=== PATIENT | female | born 1990 | race Caucasian/White ===

== ENCOUNTER 2017-11-13 14:31 | Observation (INO) | payer OTHER ==
[2017-11-13] MEDS ORDERED: Zofran 4 MG/2 ML VIAL IV PRN (14:57)
[2017-11-13] MEDS ORDERED: MORPHINE SULFATE 4 MG INJ IV PRN (14:57)
[2017-11-13] MEDS ORDERED: Lactated Ringers 1,000 ML IV SCH (15:00)
[2017-11-13] MEDS: TYLENOL 325 MG PO PRN ×2 (15:13→22:50)
[2017-11-13 15:22] LABS: Granulocyte Absolute (ANC) 5.92 (1.4-6.9); Hematocrit 28.8 % (35-47); Hemoglobin 9.8 gm/dl (12.0-16.0); Mean Cell Volume 91.4 fl (78-100); Mean Corpuscular Hemoglobin 31.1 pg (26-32); Mean Platelet Volume 10.8 fl (6-9.5); Platelet Count 254 K/mm3 (150-450); Red Blood Count 3.15 M/mm3 (4.1-5.4); Red Cell Distribution Width 13.6 % (11.5-14.0); White Blood Count 7.3 K/mm3 (4.0-10.5)
[2017-11-13 15:24] LABS: ALKALINE PHOSPHATASE 203 U/L (38-126); ANION GAP 12.5 MEQ/L (5-15); BLOOD UREA NITROGEN 5 mg/dL (7-17); CHLORIDE 105 mmol/L (98-107); Carbon Dioxide 20 mmol/L (22-30); Creatinine 1 0.53 mg/dL (0.52-1.04); Glucose 86 mg/dL (74-106); Potassium 3.4 mmol/L (3.5-5.1); SGOT/AST 168 U/L (14-36); SGPT/ALT 91 U/L (0-35); SODIUM 134 mmol/L (137-145)
[2017-11-13 16:05] LABS: ANISOCYTOSIS 1+; BAND 1 % (0.0-2.0); Lymphocytes 20 % (24-44); Monocyte 3 % (0.0-12.0); Neutrophils 76 % (36.0-66.0); Platelet Estimate NORMAL (NORMAL); Total Cells Counted 100; Toxic Granulation 1+
[2017-11-13] MEDS: Invanz 1 GM*** 1 G in Sodium Chloride 100ML MINI-BAG PLUS 100 ML IV SCH (16:19)
[2017-11-13] MEDS: Lactated Ringers 1,000 ML IV SCH ×2 (16:19→18:21)
--- NOTE | 2017-11-13 16:37 | XRAY ---
Indication: Right upper quadrant pain. Fever. Cholecystectomy. Third trimester . 2-dimensional right upper quadrant abdominal sonogram performed. Comparison: None Gallbladder surgically absent. Common bile duct 7.1 mm. No intrahepatic biliary distention. Remaining visualized portions of the liver, pancreas, and right kidney appear sonographically normal. Right kidney measures 13.5 cm in length with moderate hydronephrosis. No ascites. Impression: Cholecystectomy. Hydronephrotic right kidney presumed related to current gravid status. Remaining right upper quadrant sonogram is negative.
--- NOTE | 2017-11-13 16:44 | XRAY ---
Indication: Right upper quadrant pain. Fever. Two-dimensional OB ultrasound performed. Comparison: Major 2017. Again there is a single viable intrauterine in cephalic presentation. heart rate 173 BPM. Normal three-vessel cord and cord insertion. anatomy previously documented. Visualized stomach, kidneys, and bladder unremarkable. Placenta is again anterior without abruption/previa. BPD measures 8.75 cm corresponding to 35 weeks 2 days. HC measures 30.52 cm corresponding to 34 weeks 0 day. AC measures 29.77 cm corresponding to 33 weeks 5 days. FL measures 6.42 cm corresponding to 33 weeks 1 day. DXAA is 10.4 cm. Impression: Again single viable intrauterine with mean gestational age 34 weeks 0 day. There has been progression of with fetus now measuring 16 days larger.
[2017-11-13] MEDS ORDERED: TYLENOL 325 MG PO ONE (18:36)
[2017-11-13] MEDS: MORPHINE SULFATE 2 MG INJ IV PRN (18:39)
[2017-11-13] MEDS: PROCARDIA 10 MG PO SCH (19:12)
[2017-11-14] MEDS: MORPHINE SULFATE 2 MG INJ IV PRN ×3 (00:20→22:42)
[2017-11-14] MEDS: PROCARDIA 10 MG PO SCH ×4 (00:23→18:34)
[2017-11-14] MEDS: Lactated Ringers 1,000 ML IV SCH ×2 (02:20→10:22)
[2017-11-14] MEDS: TYLENOL 325 MG PO PRN ×3 (04:02→17:30)
--- NOTE | 2017-11-14 08:22 | PCM.NOTE ---
Date and Time: 11/14/17818 Subjective Assessment: patient has some decrease in fever this morning. feeling slightly better. pain is reasonably well controlled, pain in RUQ still significant with deep inspiration but improved, she is less tender in her upper abdomen. Objective Exam General Appearance: no apparent distress, alert Skin Exam: normal color, warm, dry Respiratory Exam: normal breath sounds, lungs clear, No respiratory distress Cardiovascular Exam: regular rate/rhythm, normal heart sounds Gastrointestinal/Abdomen Exam: tenderness (epigastrium), other (gravid), No mass , No guarding, No rebound Extremity Exam: normal inspection, normal range of motion OBJECTIVE DATA Vital Signs: Vital Signs - 24 hr Temp Pulse Resp BP BP Pulse Ox 11/14/17 04:00 99.5 F 125 H 26 H 137/62 98 11/14/17 00:41 99.9 F 119 H 28 H 105/54 98 11/13/17 22:59 101.6 F 122 H 100 11/13/17 21:30 96 11/13/17 21:00 125 H 98 11/13/17 20:00 133 H 95 11/13/17 19:50 102.6 F 145 H 24 121/53 93 L 11/13/17 15:35 102.7 F 139 H 18 127/63 Oxygen-Last 24 hours Oxygen Flowrate (L/min)-RT 2 Oxygen Flowrate (L/min)-RT 2 Oxygen Flowrate (L/min)-RT 2 Oxygen Flowrate (L/min)-RT 2 Oxygen Flowrate (L/min)-RT 2 Pain Assessment - Last Documented Pain Intensity 7 Pain Scale Used 0-10 Pain Scale Intake and Output: Intake & Output 11/11/17 11/12/17 11/13/17 11/14/17 11:59 11:59 11:59 11:59 Intake Total 3322 Balance 3322 Weight 107.955 kg Lab Results: Lab Results-Last 24 Hours 11/13/17 11/13/17 Range/Units 15:12 15:12 WBC 7.3 (4.0-10.5) K/mm3 RBC 3.15 L (4.1-5.4) M/mm3 Hgb 9.8 L (12.0-16.0) gm/dl Hct 28.8 L (35-47) % MCV 91.4 (78-100) fl MCH 31.1 (26-32) pg MCHC 34.0 (32-36) g/dl RDW 13.6 (11.5-14.0) % Plt Count 254 (150-450) K/mm3 MPV 10.8 H (6-9.5) fl Absolute Granulocytes 5.92 (1.4-6.9) Segmented Neutrophils 76 H (36.0-66.0) % Band Neutrophils 1 (0.0-2.0) % Lymphocytes (Manual) 20 L (24-44) % Monocytes (Manual) 3 (0.0-12.0) % Toxic Granulation 1+ Platelet Estimate NORMAL (NORMAL) RBC Morphology ABNORMAL Anisocytosis 1+ Sodium 134 L (137-145) mmol/L Potassium 3.4 L (3.5-5.1) mmol/L Chloride 105 (98-107) mmol/L Carbon Dioxide 20 L (22-30) mmol/L Anion Gap 12.5 (5-15) MEQ/L BUN 5 L (7-17) mg/dL Creatinine 0.53 (0.52-1.04) mg/dL Estimated GFR > 60.0 ML/MIN Glucose 86 (74-106) mg/dL Calcium 8.0 L (8.4-10.2) mg/dL Total Bilirubin 0.40 (0.2-1.3) mg/dL AST 168 H (14-36) U/L ALT 91 H (0-35) U/L Alkaline Phosphatase 203 H (38-126) U/L Serum Total Protein 6.0 L (6.3-8.2) g/dL Albumin 3.0 L (3.5-5.0) g/dL Radiology Exams: Radiology Procedures Category Date Time Status BILE DUCT [US] Stat Exams 11/13/17 14:52 Completed CHEST 1 VIEW (PORTABLE) Urgent Exams 11/13/17 20:16 Taken OB >14 WKS 1st GESTATION [US] Stat Exams 11/13/17 14:51 Completed Assessment/Plan (1) Right upper quadrant abdominal pain Current Visit: Yes Status: Acute Assessment & Plan: no obvious etiology, has moderate hydro on u/s may be related. urine culture and blood cultures are pending. seen by surgery, exam not consistent with appendicits. will check hepatitis profile in light of elevated liver enzymes and pancreatic enzymes to r/o acute pancreatitis Code(s): R10.11 - RIGHT UPPER QUADRANT PAIN (2) Fever Current Visit: Yes Status: Acute Assessment & Plan: on invanz due to pcn/ceclor allergy. awaiting culture results. Code(s): R50.9 - FEVER, UNSPECIFIED (3) Current Visit: Yes Status: Acute Code(s): Z34.90 - ENCNTR FOR SUPRVSN OF NORMAL , UNSP, UNSP TRIMESTER (4) Elevated liver enzymes Current Visit: Yes Status: Acute Code(s): R74.8 - ABNORMAL LEVELS OF OTHER SERUM ENZYMES
[2017-11-14 08:49] LABS: Hematocrit 24.5 % (35-47); Hemoglobin 8.3 gm/dl (12.0-16.0); Mean Cell Volume 92.1 fl (78-100); Mean Corpuscular Hemoglobin 31.2 pg (26-32); Mean Corpuscular Hgb Concent. 33.9 g/dl (32-36); Mean Platelet Volume 10.2 fl (6-9.5); Platelet Count 244 K/mm3 (150-450); Red Blood Count 2.66 M/mm3 (4.1-5.4); Red Cell Distribution Width 13.6 % (11.5-14.0); White Blood Count 6.9 K/mm3 (4.0-10.5)
--- NOTE | 2017-11-14 08:56 | XRAY ---
Indication: Chest pain, short of breath, and fever. Comparison: November 29, 2008. Portable chest underinflated without focal infiltrate, consolidation, or large effusion. Heart and mediastinal structures within normal limits. Bony thorax intact. Impression: Nonacute underinflated chest.
[2017-11-14 09:09] LABS: ALBUMIN 2.3 g/dL (3.5-5.0); ALKALINE PHOSPHATASE 181 U/L (38-126); AMYLASE < 30 U/L (30-110); ANION GAP 11.4 MEQ/L (5-15); BLOOD UREA NITROGEN 5 mg/dL (7-17); CHLORIDE 106 mmol/L (98-107); Calcium 7.3 mg/dL (8.4-10.2); Carbon Dioxide 19 mmol/L (22-30); Creatinine 1 0.56 mg/dL (0.52-1.04); Glucose 78 mg/dL (74-106); SGOT/AST 218 U/L (14-36); SGPT/ALT 106 U/L (0-35); SODIUM 134 mmol/L (137-145)
[2017-11-14 09:13] LABS: Potassium 2.7 mmol/L (3.5-5.1)
[2017-11-14 09:14] LABS: LIPASE < 10 U/L (23-300)
[2017-11-14 09:19] LABS: BAND 17 % (0.0-2.0); Eosinophil 1 % (0.00-3.0); Lymphocytes 19 % (24-44); Metamyelocyte 5 %; Monocyte 4 % (0.0-12.0); Myelocyte 2 %; Neutrophils 51 % (36.0-66.0); Total Cells Counted 100
[2017-11-14 09:21] LABS: ANISOCYTOSIS 1+; Platelet Estimate NORMAL (NORMAL); Polychromasia RARE
[2017-11-14] MEDS: Invanz 1 GM*** 1 G in Sodium Chloride 100ML MINI-BAG PLUS 100 ML IV SCH (10:33)
[2017-11-14] MEDS: POTASSIUM CHLORIDE 20 mEq IN WATER 100ML 20 MEQ/100 ML BAG IV SCH ×2 (11:20→13:23)
[2017-11-14 16:33] LABS: ANION GAP 10.4 MEQ/L (5-15); BLOOD UREA NITROGEN 4 mg/dL (7-17); CHLORIDE 108 mmol/L (98-107); Calcium 7.4 mg/dL (8.4-10.2); Carbon Dioxide 22 mmol/L (22-30); Glucose 73 mg/dL (74-106); Potassium 3.2 mmol/L (3.5-5.1); SODIUM 137 mmol/L (137-145)
[2017-11-14] MEDS ORDERED: Ambien 5 MG Tablet PO PRN (16:54)
[2017-11-14] MEDS: Magnesium 1 Gm / 100 Ml D5W*** 100 ML IV SCH ×2 (17:11→17:55)
[2017-11-14 18:30] LABS: Barbiturate,Urine NEGATIVE (NEGATIVE); Benzodiazepine,Urine NEGATIVE (NEGATIVE); Cocaine,Urine NEGATIVE (NEGATIVE); Methadone,Urine NEGATIVE (NEGATIVE); Opiate,Urine NEGATIVE (NEGATIVE); PCP,Urine NEGATIVE (NEGATIVE); THC,Urine NEGATIVE (NEGATIVE)
[2017-11-14 18:57] LABS: Amphetamine,Urine POSITIVE (NEGATIVE)
[2017-11-14] MEDS: Pepcid 20 MG VIAL IV SCH (21:59)
[2017-11-15] MEDS: PROCARDIA 10 MG PO SCH ×3 (00:33→13:09)
[2017-11-15] MEDS: Lactated Ringers 1,000 ML IV SCH ×2 (01:09→08:21)
[2017-11-15 01:58] VITALS: O2SAT 97
[2017-11-15] MEDS: MORPHINE SULFATE 2 MG INJ IV PRN ×4 (02:29→12:26)
[2017-11-15 06:13] LABS: ALBUMIN 2.3 g/dL (3.5-5.0); ALKALINE PHOSPHATASE 194 U/L (38-126); ANION GAP 10.6 MEQ/L (5-15); BLOOD UREA NITROGEN 4 mg/dL (7-17); CHLORIDE 107 mmol/L (98-107); Calcium 7.3 mg/dL (8.4-10.2); Carbon Dioxide 20 mmol/L (22-30); Creatinine 1 0.45 mg/dL (0.52-1.04); Glucose 67 mg/dL (74-106); SGOT/AST 119 U/L (14-36); SGPT/ALT 84 U/L (0-35); SODIUM 134 mmol/L (137-145)
[2017-11-15 06:14] LABS: AMYLASE < 30 U/L (30-110)
[2017-11-15 06:17] LABS: LIPASE < 10 U/L (23-300)
[2017-11-15 06:22] LABS: Granulocyte Absolute (ANC) 4.15 (1.4-6.9); Hematocrit 23.4 % (35-47); Hemoglobin 7.9 gm/dl (12.0-16.0); Mean Cell Volume 91.4 fl (78-100); Mean Corpuscular Hgb Concent. 33.8 g/dl (32-36); Mean Platelet Volume 10.6 fl (6-9.5); Platelet Count 285 K/mm3 (150-450); Red Blood Count 2.56 M/mm3 (4.1-5.4); Red Cell Distribution Width 13.8 % (11.5-14.0); White Blood Count 6.5 K/mm3 (4.0-10.5)
[2017-11-15 06:26] LABS: Mean Corpuscular Hemoglobin 30.8 pg (26-32)
[2017-11-15] MEDS ORDERED: K-LYTE 25 MEQ PO ONE (07:00)
[2017-11-15 09:58] LABS: HEPATITIS B VIRUS CORE TOT AB Non Reactive (Non Reactive); HEPATITIS C VIRUS ANTIBODY Non Reactive (Non Reactive); Hepatitis B Surface Antigen Non Reactive (Non Reactive)
[2017-11-15] MEDS: Pepcid 20 MG VIAL IV SCH (10:05)
[2017-11-15] MEDS: Invanz 1 GM*** 1 G in Sodium Chloride 100ML MINI-BAG PLUS 100 ML IV SCH (10:05)
--- NOTE | 2017-11-15 10:45 | PCM.DS ---
Discharge Summary Date of Admission: 11/13/17 14:33 Admitting Physician: CHASITY MADDOX Consults: Consults on Case 11/13/17 16:27 Consult Surgery ROUTINE Primary Care Provider: CHASITY MADDOX Allergies Allergies amoxicillin [Amoxicillin] Allergy (Verified 05/15/15 08:22) cefaclor [From Ceclor] Allergy (Verified 05/15/15 08:22) Hospital Summary - Hospital Course Hospital Course: patient is at 31 weeks by LMP who presented with fever, epigastric and ruq pain. fever has resolved, workup thus far negative for hepatitis. + amphetamines on triage, remains in pain with elevated LFT's transferring to [facility] - Vitals & Intake/Output Vital Signs: Vital Signs Temperature 98.5 F 11/15/17 08:00 Pulse Rate 122 H 11/15/17 08:00 Respiratory Rate 26 H 11/15/17 08:00 Blood Pressure 131/76 11/15/17 08:00 O2 Sat by Pulse Oximetry 97 11/15/17 00:00 Oxygen-Last Documented O2 Percentage 2 Liters = 28% Intake & Output: Intake & Output 11/12/17 11/13/17 11/14/17 11/15/17 11:59 11:59 11:59 11:59 Intake Total 3322 120 Balance 3322 120 Weight 107.955 kg - Lab Result Diagrams: 11/15/17 05:10 11/15/17 05:10 Lab Results-Last 24 Hrs: Lab Results-Last 24 Hours 11/14/17 11/14/17 11/14/17 Range/Units 08:49 16:13 16:13 WBC (4.0-10.5) K/mm3 RBC (4.1-5.4) M/mm3 Hgb (12.0-16.0) gm/dl Hct (35-47) % MCV (78-100) fl MCH (26-32) pg MCHC (32-36) g/dl RDW (11.5-14.0) % Plt Count (150-450) K/mm3 MPV (6-9.5) fl Absolute Granulocytes (1.4-6.9) Sodium 137 (137-145) mmol/L Potassium 3.2 L (3.5-5.1) mmol/L Chloride 108 H (98-107) mmol/L Carbon Dioxide 22 (22-30) mmol/L Anion Gap 10.4 (5-15) MEQ/L BUN 4 L (7-17) mg/dL Creatinine 0.50 L (0.52-1.04) mg/dL Estimated GFR > 60.0 ML/MIN Glucose 73 L (74-106) mg/dL Calcium 7.4 L (8.4-10.2) mg/dL Magnesium 1.4 L (1.6-2.3) mg/dL Total Bilirubin (0.2-1.3) mg/dL AST (14-36) U/L ALT (0-35) U/L Alkaline Phosphatase (38-126) U/L Serum Total Protein (6.3-8.2) g/dL Albumin (3.5-5.0) g/dL Amylase (30-110) U/L Lipase (23-300) U/L Urine Opiates Level (NEGATIVE) Ur Methadone (NEGATIVE) Urine Barbiturates (NEGATIVE) Ur Phencyclidine (PCP) (NEGATIVE) Urine Amphetamine (NEGATIVE) U Benzodiazepine Level (NEGATIVE) Urine Cocaine (NEGATIVE) Urine Marijuana (THC) (NEGATIVE) Hepatitis A IgM Ab Non Reactive (Non Reactive) Hep Bs Antigen Non Reactive (Non Reactive) Hep Bs Antibody, Quant <3.50 (0.00-8.49) mIU/mL Hep B Core Total Ab Non Reactive (Non Reactive) Hepatitis C Antibody Non Reactive (Non Reactive) 11/14/17 11/15/17 11/15/17 Range/Units Unknown 05:10 05:10 WBC 6.5 (4.0-10.5) K/mm3 RBC 2.56 L (4.1-5.4) M/mm3 Hgb 7.9 L (12.0-16.0) gm/dl Hct 23.4 L (35-47) % MCV 91.4 (78-100) fl MCH 30.8 (26-32) pg MCHC 33.8 (32-36) g/dl RDW 13.8 (11.5-14.0) % Plt Count 285 (150-450) K/mm3 MPV 10.6 H (6-9.5) fl Absolute Granulocytes 4.15 (1.4-6.9) Sodium 134 L (137-145) mmol/L Potassium 3.0 L (3.5-5.1) mmol/L Chloride 107 (98-107) mmol/L Carbon Dioxide 20 L (22-30) mmol/L Anion Gap 10.6 (5-15) MEQ/L BUN 4 L (7-17) mg/dL Creatinine 0.45 L (0.52-1.04) mg/dL Estimated GFR > 60.0 ML/MIN Glucose 67 L (74-106) mg/dL Calcium 7.3 L (8.4-10.2) mg/dL Magnesium 1.7 (1.6-2.3) mg/dL Total Bilirubin 0.20 (0.2-1.3) mg/dL AST 119 H (14-36) U/L ALT 84 H (0-35) U/L Alkaline Phosphatase 194 H (38-126) U/L Serum Total Protein 5.0 L (6.3-8.2) g/dL Albumin 2.3 L (3.5-5.0) g/dL Amylase (30-110) U/L Lipase (23-300) U/L Urine Opiates Level NEGATIVE (NEGATIVE) Ur Methadone NEGATIVE (NEGATIVE) Urine Barbiturates NEGATIVE (NEGATIVE) Ur Phencyclidine (PCP) NEGATIVE (NEGATIVE) Urine Amphetamine POSITIVE (NEGATIVE) U Benzodiazepine Level NEGATIVE (NEGATIVE) Urine Cocaine NEGATIVE (NEGATIVE) Urine Marijuana (THC) NEGATIVE (NEGATIVE) Hepatitis A IgM Ab (Non Reactive) Hep Bs Antigen (Non Reactive) Hep Bs Antibody, Quant (0.00-8.49) mIU/mL Hep B Core Total Ab (Non Reactive) Hepatitis C Antibody (Non Reactive) 11/15/17 Range/Units 05:10 WBC (4.0-10.5) K/mm3 RBC (4.1-5.4) M/mm3 Hgb (12.0-16.0) gm/dl Hct (35-47) % MCV (78-100) fl MCH (26-32) pg MCHC (32-36) g/dl RDW (11.5-14.0) % Plt Count (150-450) K/mm3 MPV (6-9.5) fl Absolute Granulocytes (1.4-6.9) Sodium (137-145) mmol/L Potassium (3.5-5.1) mmol/L Chloride (98-107) mmol/L Carbon Dioxide (22-30) mmol/L Anion Gap (5-15) MEQ/L BUN (7-17) mg/dL Creatinine (0.52-1.04) mg/dL Estimated GFR ML/MIN Glucose (74-106) mg/dL Calcium (8.4-10.2) mg/dL Magnesium (1.6-2.3) mg/dL Total Bilirubin (0.2-1.3) mg/dL AST (14-36) U/L ALT (0-35) U/L Alkaline Phosphatase (38-126) U/L Serum Total Protein (6.3-8.2) g/dL Albumin (3.5-5.0) g/dL Amylase < 30 L (30-110) U/L Lipase < 10 L (23-300) U/L Urine Opiates Level (NEGATIVE) Ur Methadone (NEGATIVE) Urine Barbiturates (NEGATIVE) Ur Phencyclidine (PCP) (NEGATIVE) Urine Amphetamine (NEGATIVE) U Benzodiazepine Level (NEGATIVE) Urine Cocaine (NEGATIVE) Urine Marijuana (THC) (NEGATIVE) Hepatitis A IgM Ab (Non Reactive) Hep Bs Antigen (Non Reactive) Hep Bs Antibody, Quant (0.00-8.49) mIU/mL Hep B Core Total Ab (Non Reactive) Hepatitis C Antibody (Non Reactive) - Radiology Exams Ordered Rad Exams-Entire Visit: Radiology Procedures Category Date Time Status BILE DUCT [US] Stat Exams 11/13/17 14:52 Completed CHEST 1 VIEW (PORTABLE) Urgent Exams 11/13/17 20:16 Completed OB >14 WKS 1st GESTATION [US] Stat Exams 11/13/17 14:51 Completed - Procedures and Test Procedures and Tests throughout Hospitalization: Therapy Orders & Screens 11/13/17 23:54 Oxygen NASAL CANNULA 2 lpm Comment: Diagnosis: RUQ pain, fever, and Discharge Exam General Appearance: no apparent distress, obese Skin Exam: normal color, warm, dry Respiratory Exam: normal breath sounds, lungs clear, No respiratory distress Cardiovascular Exam: regular rate/rhythm, normal heart sounds Gastrointestinal/Abdomen Exam: tenderness (epigastrium, gravid FHR 130's reactive [place] quiet) Final Diagnosis/Problem List - Final Discharge Diagnosis/Problem (1) Right upper quadrant abdominal pain Current Visit: Yes Status: Acute Assessment & Plan: transfer to [facility] (2) Fever Current Visit: Yes Status: Acute (3) Current Visit: Yes Status: Acute (4) Elevated liver enzymes Current Visit: Yes Status: Acute - Discharge Disposition: XFER OTHER Condition: Stable Prescriptions: No Action Ferrous Sulfate 325 mg PO BID
[2017-11-15 14:40] LABS: BAND 4 % (0.0-2.0); Lymphocytes 29 % (24-44); Monocyte 6 % (0.0-12.0); Neutrophils 61 % (36.0-66.0); Total Cells Counted 100
[2017-11-15 14:41] LABS: Platelet Estimate NORMAL (NORMAL)
[2017-11-15 16:08] VITALS: BP 130/74; PULSE 110
--- NOTE | 2017-11-17 11:09 | CONS ---
CONSULT DATE: 11/13/2017 REASON FOR CONSULT: Abdominal pain. HISTORY: The patient has 24 hour history of right upper quadrant pain. She had cholecystectomy several years ago. She had not had any issues during this at all. She is currently 30 weeks. She had an ultrasound that was satisfactory. She had been sent to the x-ray department for plain abdominal films. PHYSICAL EXAMINATION: On examination she has no peritoneal signs but she is slightly distended. She is consistent with 30 weeks with uterus well up into the upper abdomen. ASSESSMENT: I am not sure what is causing the pain at this time. I do not think it is going to be surgical but she certainly requires observation and re-examination.
== END 2017-11-15 14:50 ==
LOC: UNDOADMOB 14:33 → MED SURG 14:33
PROVIDERS: ADMIT Family Medicine; ATTEND Family Medicine
DX: O26.892 Other specified pregnancy related conditions, second trimester (principal); R10.11 Right upper quadrant pain; O26.893 Other specified pregnancy related conditions, third trimester; R79.89 Other specified abnormal findings of blood chemistry; R50.9 Fever, unspecified; R74.8 Abnormal levels of other serum enzymes
CPT/HCPCS: 36415; 71045; 76705; 76805; 80048; 80053; 80074; 80307; 81003; 82150; 83690; 83735; 85025; 87040; 87086; 93012; 94760; G0378; J1335; J2270; J3475; J3480; A9270-GY

== ENCOUNTER 2018-01-20 04:51 | Inpatient (IN) | payer OTHER ==
[2018-01-20] MEDS ORDERED: Lactated Ringers 1,000 ML IV SCH (05:00)
[2018-01-20] MEDS ORDERED: Lactated Ringers 1,000 ML IV ONE (05:00)
[2018-01-20] MEDS ORDERED: BICITRA 30 ML CUP PO SCH (05:00)
[2018-01-20] MEDS ORDERED: Reglan 10 MG/2 ML IV SCH (05:00)
[2018-01-20] MEDS ORDERED: Pepcid 20 MG VIAL IV SCH (05:00)
[2018-01-20 05:24] LABS: Hematocrit 32.6 % (35-47); Hemoglobin 10.6 gm/dl (12.0-16.0); Mean Cell Volume 93.7 fl (78-100); Mean Corpuscular Hgb Concent. 32.5 g/dl (32-36); Mean Platelet Volume 10.6 fl (6-9.5); Platelet Count 383 K/mm3 (150-450); Red Blood Count 3.48 M/mm3 (4.1-5.4); Red Cell Distribution Width 14.3 % (11.5-14.0); White Blood Count 16.2 K/mm3 (4.0-10.5)
[2018-01-20 05:29] LABS: Mean Corpuscular Hemoglobin 30.4 pg (26-32)
[2018-01-20 05:47] LABS: INR 0.95 (0.8-3.0)
[2018-01-20 05:48] LABS: PTT 25.4 SECONDS (25.3-37.0)
[2018-01-20 05:55] LABS: Appearance HAZY (CLEAR); Bilirubin NEGATIVE (NEGATIVE); Blood NEGATIVE Ery/ul (0-5); Glucose NEGATIVE (NEGATIVE); Ketones NEGATIVE (NEGATIVE); Leukocyte Esterase 2+ (NEGATIVE); Nitrite NEGATIVE (NEGATIVE); Protein,Urine Dip TRACE (Negative); Specific Gravity 1.015 (1.005-1.025); Urobilinogen NORMAL mg/dL (0-1)
[2018-01-20 06:06] LABS: Amphetamine,Urine NEGATIVE (NEGATIVE); Barbiturate,Urine NEGATIVE (NEGATIVE); Benzodiazepine,Urine NEGATIVE (NEGATIVE); Cocaine,Urine NEGATIVE (NEGATIVE); Methadone,Urine NEGATIVE (NEGATIVE); Opiate,Urine NEGATIVE (NEGATIVE); PCP,Urine NEGATIVE (NEGATIVE); THC,Urine NEGATIVE (NEGATIVE)
[2018-01-20 06:26] LABS: ABO TYPING O; Antibody Screen NEGATIVE (NEGATIVE); RH TYPING POSITIVE
[2018-01-20] MEDS ORDERED: Lactated Ringers 2,000 ML IV ONE (07:19)
[2018-01-20] MEDS ORDERED: CLINDAMYCIN-D5W 900 MG/50 ML*** 900 MG/50 ML BAG IV ONE (09:00)
[2018-01-20] MEDS ORDERED: BENADRYL 50 MG/ML IV PRN (10:00)
[2018-01-20] MEDS ORDERED: DEMEROL 50 MG IV PRN (10:00)
[2018-01-20] MEDS ORDERED: HOLD NARCOTIC ANALGESICS AND SEDATIVES X24 HR MC PRN (10:00)
[2018-01-20] MEDS ORDERED: Narcan 0.4 MG/ML IV PRN (10:00)
[2018-01-20] MEDS ORDERED: Mylicon 80MG PO PRN (10:00)
[2018-01-20] MEDS ORDERED: Zofran 4 MG/2 ML VIAL IV PRN (10:00)
[2018-01-20] MEDS ORDERED: TYLENOL EXTRA STRENGTH 500 MG PO PRN (10:00)
[2018-01-20] MEDS ORDERED: CLARITIN 10 MG PO PRN (10:00)
[2018-01-20] MEDS ORDERED: LANSINOH 40 GM TOP PRN (10:00)
[2018-01-20] MEDS ORDERED: Nubain 10 MG/ML IV PRN (10:00)
[2018-01-20] MEDS ORDERED: MORPHINE SULFATE 2 MG INJ IV PRN (10:00)
--- NOTE | 2018-01-20 11:28 | OP ---
SURGERY DATE/TIME: 01/20/2018 0951 PREOPERATIVE DIAGNOSES: 1) macrosomia. 2) History of prior traumatic delivery. 3) Desires permanent sterilization. POSTOPERATIVE DIAGNOSES: 1) macrosomia. 2) History of prior traumatic delivery. 3) Desires permanent sterilization. PROCEDURE: Primary low transverse section with bilateral tubal ligation. SURGEON: Calvin Parish M.D. ANESTHESIA: Spinal. ESTIMATED BLOOD LOSS: 400 cc. IV FLUIDS: 1500 cc. URINE OUTPUT: 300 cc clear straw-colored urine. SPECIMEN: Bilateral fallopian tube segments. DESCRIPTION OF PROCEDURE: After informed, written consent was obtained, the patient was taken to the OR. She underwent spinal anesthesia and was prepped and draped in the usual sterile fashion. Prior to going to the OR, I had a long discussion with her regarding the permanent nature of tubal ligation and alternatives that are not permanent. The patient expressed desire for permanent sterilization with an expected surgical procedure. I consented to comply with that request today. After adequate level of anesthesia was assessed, skin incision made by knife and carried down through the subcutaneous fat to the level of the fascia. Fascia was nicked on both sides of the midline and extended in horizontal fashion using curved Perdue scissors. Superior free edge of the fascia was grasped with Noy clamps. The underlying rectus muscles were resected free. The same was repeated inferiorly. Peritoneal cavity was then opened and extended in horizontal fashion. A bladder blade was then created and reflected over the lower uterine segment. Horizontal uterine incision was made by knife and carried down to the level of the amniotic membranes which were carefully artificially ruptured. A viable large male was delivered from the vertex presentation with nuchal cord x1 that was reduced. Oropharynx and nares were bulb suctioned free. The cord was clamped and cut and he was handed off to the awaiting nursery team. The placenta was removed manually from the uterine cavity and the uterus was exteriorized. The uterine cavity was curetted with lap sponge. The uterine incision was closed with #1 chromic in a running locked fashion with good closure and good hemostasis. Next, the right fallopian tube was identified first. Cautery was used to make a window in the mesosalpinx, proximal and distal tube segments were ligated with chromic tie and the interceding tube segment was dissected free with Metzenbaum scissors. The free edge of the tube lumen was then cauterized with electrocautery. The same was repeated on the left with good hemostasis and good results. The posterior cul-de-sac was wiped free of blood and clot with moist lap sponge and the uterus was returned to the peritoneal cavity. The lateral gutters were wiped free of blood and clot. The uterine incision was inspected and noted to be hemostatic with good closure. Next, the fascia was closed with 0 Vicryl in a running fashion with good closure and good hemostasis were achieved. The subcutaneous fat was irrigated with warm, sterile saline and any areas of bleeding were cauterized with electrocautery. Finally, the skin layer was closed with 4-0 undyed Vicryl in a running subcuticular fashion. Steri-Strips and occlusive dressing were placed over the incision. The patient was transferred to the recovery room in excellent condition.
[2018-01-20] MEDS: FERREX 150 PO SCH (12:26)
[2018-01-20] MEDS: Dextrose 5%-Lr IV Solution 1000 ML 1,000 ML IV SCH ×2 (12:26→21:46)
[2018-01-20] MEDS: Colace 100 MG PO SCH ×2 (12:27→22:30)
[2018-01-20] MEDS ORDERED: Astramorph-Pf 5 MG/10 ML IJ ONE (13:58)
[2018-01-20] MEDS ORDERED: SUBLIMAZE 100 MCG/2 ML IV ONE (13:58)
[2018-01-20] MEDS ORDERED: Zofran 4 MG/2 ML VIAL IV ONE (13:59)
[2018-01-20] MEDS ORDERED: Marcaine Spinal Ampul IJ ONE (13:59)
[2018-01-20] MEDS ORDERED: LIDOCAINE HCL 2% 100 MG/5 ML IJ ONE (13:59)
[2018-01-20] MEDS ORDERED: Naropin 0.5% 30 ML VIAL IJ ONE (13:59)
[2018-01-20] MEDS ORDERED: Decadron 4 MG INJ IV ONE (13:59)
[2018-01-20] MEDS ORDERED: Ephedrine Sulfate 50 MG/ML IJ ONE (13:59)
[2018-01-20] MEDS ORDERED: Pitocin 10 UNITS/ML IV ONE (13:59)
[2018-01-20] MEDS ORDERED: TORAdol 30 mg Injection IJ ONE (13:59)
[2018-01-20] MEDS ORDERED: PATIENT OWN MEDICATION IH PRN (20:52)
[2018-01-20] MEDS: FEOSOL 325 MG PO SCH (22:30)
[2018-01-21] MEDS: PERCOCET TABLET 5/325MG PO PRN ×2 (05:00→10:06)
[2018-01-21 05:35] LABS: Granulocyte Absolute (ANC) 13.22 (1.4-6.9); Hematocrit 21.4 % (35-47); Mean Cell Volume 95.1 fl (78-100); Mean Corpuscular Hgb Concent. 32.2 g/dl (32-36); Mean Platelet Volume 10.9 fl (6-9.5); Platelet Count 343 K/mm3 (150-450); Red Blood Count 2.25 M/mm3 (4.1-5.4); Red Cell Distribution Width 13.9 % (11.5-14.0); White Blood Count 17.7 K/mm3 (4.0-10.5)
[2018-01-21 05:44] LABS: Mean Corpuscular Hemoglobin 30.6 pg (26-32)
[2018-01-21 05:46] LABS: Hemoglobin 6.9 gm/dl (12.0-16.0)
[2018-01-21 06:26] LABS: Lymphocytes 20 % (24-44); Monocyte 1 % (0.0-12.0); Neutrophils 79 % (36.0-66.0); Platelet Estimate NORMAL (NORMAL); Total Cells Counted 100
[2018-01-21 06:27] LABS: ANISOCYTOSIS 1+
[2018-01-21] MEDS: FERREX 150 PO SCH (09:00)
[2018-01-21] MEDS: MOTRIN 400 MG PO PRN ×3 (09:00→23:35)
[2018-01-21] MEDS: FEOSOL 325 MG PO SCH ×2 (09:00→23:34)
[2018-01-21] MEDS: Colace 100 MG PO SCH ×2 (09:23→23:34)
[2018-01-21] MEDS ORDERED: Phenergan 25 MG INJ IM PRN (10:00)
[2018-01-21] MEDS ORDERED: DEMEROL 75 MG IM PRN (10:00)
[2018-01-21] MEDS ORDERED: FLUTICASONE PROPIONATE 50 MCG IN PRN (16:55)
[2018-01-21] MEDS ORDERED: Flonase NASAL NS PRN (16:58)
[2018-01-21] MEDS: NORCO 5/325 MG PO PRN (18:00)
[2018-01-21 20:39] VITALS: O2SAT 98
[2018-01-22] MEDS: NORCO 5/325 MG PO PRN (07:20)
--- NOTE | 2018-01-22 07:53 | PCM.DS ---
Discharge Summary Date of Admission: 01/20/18 04:51 Admitting Physician: CHASITY MADDOX Consults: Consults on Case 01/20/18 05:00 Notify Anesthesia Provider ROUTINE Notify Physician OF ADMISSION Primary Care Provider: YOON BINGHAM Allergies Allergies amoxicillin [Amoxicillin] Allergy (Verified 05/15/15 08:22) cefaclor [From Ceclor] Allergy (Verified 05/15/15 08:22) Hospital Summary - Hospital Course Hospital Course: patient was admitted for primary + BTL for macrosomia, EFW > 10lbs, irregular care, patient noncompliant with having glucose screen done. had drug screen +amphetamines on 01/05, negative since then. has done great with routine postoperative care - Vitals & Intake/Output Vital Signs: Vital Signs Temperature 98.4 F 01/22/18 02:00 Pulse Rate 106 H 01/21/18 20:00 Respiratory Rate 18 01/22/18 02:00 Blood Pressure 121/63 01/21/18 20:00 O2 Sat by Pulse Oximetry 98 01/21/18 20:00 Intake & Output: Intake & Output 01/19/18 01/20/18 01/21/18 01/22/18 11:59 11:59 11:59 11:59 Intake Total 4214 1200 Output Total 1350 Balance 2864 1200 Weight 101.151 kg - Lab Result Diagrams: 01/21/18 05:33 Micro Results-Entire Visit: Microbiology 01/20/18 08:58 Urine Culture - Preliminary Catherized NO GROWTH TO DATE - Procedures and Test Procedures and Tests throughout Hospitalization: Therapy Orders & Screens 01/20/18 10:11 Standby Routine Comment: Diagnosis: Primary Section 01/20/18 20:57 Peak Expiratory Flow Rate ONCE Comment: Reason For Exam: Diagnosis: Primary Section Respiratory MDI PRN Comment: ALBUTEROL 2 PUFFS Q4HPRN FOR SOB/WHEEZING Diagnosis: Primary Section Respiratory Therapy Assessment DAILY Comment: Diagnosis: Primary Section Discharge Exam General Appearance: no apparent distress, alert Skin Exam: normal color, warm, dry Respiratory Exam: normal breath sounds, lungs clear, No respiratory distress Cardiovascular Exam: regular rate/rhythm, normal heart sounds Gastrointestinal/Abdomen Exam: soft, other (incision clean, dry, intact and well approximated), No tenderness, No mass Extremity Exam: normal inspection, normal range of motion Final Diagnosis/Problem List - Final Discharge Diagnosis/Problem (1) delivery delivered Current Visit: Yes Status: Acute (2) Tubal ligation status Current Visit: Yes Status: Acute - Discharge Disposition: Home, Self-Care Condition: Stable Prescriptions: New Docusate Sodium 100 mg [Colace 100 MG] 100 mg PO BID #60 capsule Hydrocodone Bit/Acetaminophen [[place] 5-325 Tablet] 1 each PO Q4-6HPRN PRN # 20 tablet MDD 4 PRN Reason: Pain Continue Ferrous Sulfate 325 mg PO BID Fluticasone Propionate 50 mcg IN BID PRN PRN Reason: drainage Albuterol 8 gm Mdi Hfa [Ventolin Hfa MDI] 1 puff IH BID PRN PRN Reason: Cough Follow up with: YOON BINGHAM [Primary Care Provider] - 1 Week
[2018-01-22 11:04] VITALS: BP 124/74; PULSE 93
== END 2018-01-22 10:44 | disposition home or self-care (01) | DRG 785 ==
LOC: OB 04:51
PROVIDERS: ADMIT Family Medicine; ATTEND Family Medicine
PROC: 10D00Z1 Extraction of Products of Conception, Low, Open Approach (ICD-10-PCS; principal; 2018-01-20)
PROC: 0UL70ZZ Occlusion of Bilateral Fallopian Tubes, Open Approach (ICD-10-PCS; 2018-01-20)
DX: O36.63X0 Maternal care for excessive fetal growth, third trimester, not applicable or unspecified (principal); Z3A.40 40 weeks gestation of pregnancy; Z37.0 Single live birth; Z30.2 Encounter for sterilization
CPT/HCPCS: 36415; 64488; 76942; 80307; 81001; 81003; 85025; 85027; 85610; 85730; 86850; 86900; 86901; 87086; 88302; 94150; 94640; 94760; 94799; J1100; J1885; J2274; J2405; J2590; J2795; J3010; L0625; A9270-GY

== ENCOUNTER 2022-11-15 17:26 | Emergency (ER) | payer OTHER ==
--- NOTE | 2022-11-15 18:36 | ERPHSYRPT ---
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 Patient was seen at [facility] emergency department for the same issue earlier today, immediately after her onset of pain. I reviewed those records. I also obtained additional, independent history from the patient's mother. [facility] performed laboratory data and urine studies. It does not appear that she underwent a CAT scan of the abdomen pelvis. We will order that now. We also provide her some pain relief. They did discharge her to home with NSAIDs prescription. Patient denies vaginal bleeding. Patient denies vaginal discharge. Timing/Duration: today Activities at Onset: activity (Bending over) Quality: sharpness, stabbing Abdominal Pain Onset Location: suprapubic, other (Pelvic) Pain Radiation: no radiation Severity of Pain-Max: moderate Severity of Pain-Current: moderate Modifying Factors: Improves With: position (Lying on her left side) Associated Symptoms: denies symptoms Previous symptoms: no prior history, recently seen, recently treated Allergies/Adverse Reactions: amoxicillin [Amoxicillin] Allergy (Verified 11/15/22 18:41) cefaclor [From Ceclor] Allergy (Verified 11/15/22 18:41) Home Medications: No Reportable Medications [No Reported Medications] 10/21/22 [History] Hx Tetanus, Diphtheria Vaccination/Date Given: No Hx Influenza Vaccination/Date Given: No Hx Pneumococcal Vaccination/Date Given: No Travel Risk - International Travel Have you traveled outside of the country in past 3 weeks: No - Coronavirus Screening Are you exhibiting any of the following symptoms?: No Close contact with a COVID-19 positive Pt in past 14-21 Days: No - Review of Systems Constitutional: No Symptoms Eyes: No Symptoms Ears, Nose, & Throat: No Symptoms Respiratory: No Symptoms Cardiac: No Symptoms Abdominal/Gastrointestinal: Abdominal Pain (Suprapubic/pelvic) Genitourinary Symptoms: No Symptoms Musculoskeletal: No Symptoms Skin: No Symptoms Neurological: No Symptoms Psychological: No Symptoms Endocrine: No Symptoms Hematologic/Lymphatic: No Symptoms Immunological/Allergic: No Symptoms All Other Systems: Reviewed and Negative - Past Medical History Pertinent Past Medical History: Yes Neurological History: No Pertinent History ENT History: No Pertinent History Cardiac History: No Pertinent History Respiratory History: No Pertinent History Endocrine Medical History: No Pertinent History Musculoskeletal History: No Pertinent History GI Medical History: No Pertinent History History: No Pertinent History Psycho-Social History: No Pertinent History Female Reproductive Disorders: Menstrual Problems Other Medical History: multiple UTI's,heavy bleeding menstrual and painful sex - Past Surgical History Past Surgical History: Yes Neuro Surgical History: No Pertinent History Cardiac: No Pertinent History Respiratory: No Pertinent History Gastrointestinal: No Pertinent History, Cholecystectomy Genitourinary: No Pertinent History, Other Musculoskeletal: No Pertinent History Female Surgical History: No Pertinent History, Tubal Ligation Other Surgical History: kidney stone removed - Social History Smoking Status: Former smoker How long have you smoked: 5 Exposure to second hand smoke: No Drug Use: none Patient Lives Alone: No - Nursing Vital Signs Nursing Vital Signs: Initial Vital Signs Temperature 97.3 F 11/15/22 18:39 Pulse Rate 71 11/15/22 18:39 Respiratory Rate 18 11/15/22 18:39 Blood Pressure 120/66 11/15/22 18:39 O2 Sat by Pulse Oximetry 99 11/15/22 18:39 Pain Scale Pain Intensity 3 - Physical Exam General Appearance: no apparent distress, alert, anxiety Eye Exam: PERRL/EOMI, eyes nml inspection Ears, Nose, Throat Exam: normal ENT inspection, moist mucous membranes Neck Exam: normal inspection, non-tender, supple, full range of motion Respiratory Exam: normal breath sounds, lungs clear, airway intact, No chest tenderness, No respiratory distress Cardiovascular Exam: regular rate/rhythm, normal heart sounds, normal peripheral pulses Gastrointestinal/Abdomen Exam: soft, normal bowel sounds, tenderness (Suprapubic region) Pelvic Exam: not done Rectal Exam: not done Back Exam: normal inspection, normal range of motion, No CVA tenderness, No vertebral tenderness Extremity Exam: normal inspection, normal range of motion, pelvis stable Neurologic Exam: alert, oriented x 3, cooperative, math and science instructor II-XII nml as tested, normal mood/affect, nml cerebellar function, nml station & gait, sensation nml Skin Exam: normal color, warm, dry Lymphatic Exam: No adenopathy SpO2 Interpretation: normal O2 Delivery: Room Air - Course Nursing assessment & vital signs reviewed: Yes Ordered Tests: Active Orders 24 hr Category Date Time Status IV Insertion STAT Care 11/15/22 19:24 Active ABDOMEN AND PELVIS W/0 CONTRAS [CT] Stat Exams 11/15/22 19:25 Completed AMYLASE Stat Lab 11/15/22 19:35 Completed CBC W DIFF Stat Lab 11/15/22 19:35 Completed CMP Stat Lab 11/15/22 19:35 Completed LIPASE Stat Lab 11/15/22 19:35 Completed UA W/RFX UR CULTURE Stat Lab 11/15/22 19:25 Ordered Medication Summary Discontinued Medications Generic Name Dose Route Start Last Admin Trade Name Freq PRN Reason Stop Dose Admin Hydromorphone HCl 1 mg 11/15/22 19:24 11/15/22 20:04 Hydromorphone 1 Mg/1ml Inj IV 11/15/22 19:25 1 mg STAT ONE Administration Hydromorphone HCl Confirm 11/15/22 19:55 Hydromorphone 1 Mg/1ml Inj Administered 11/15/22 19:56 Dose 1 mg .ROUTE .STK-MED ONE Sodium Chloride 1,000 mls @ 999 mls/hr 11/15/22 19:24 11/15/22 19:58 Sodium Chloride 0.9% 1000 Ml IV 11/15/22 20:24 999 mls/hr .Q1H1M STA Administration Sodium Chloride Confirm 11/15/22 19:55 Sodium Chloride 0.9% 1000 Ml Administered 11/15/22 19:56 Dose 1,000 mls @ ud .ROUTE .STK-MED ONE Ketorolac Tromethamine 30 mg 11/15/22 19:24 11/15/22 20:02 Ketorolac Tromethamine 30 Mg/Ml Inj IV 11/15/22 19:25 30 mg STAT ONE Administration Ketorolac Tromethamine Confirm 11/15/22 19:54 Ketorolac Tromethamine 30 Mg/Ml Inj Administered 11/15/22 19:55 Dose 30 mg .ROUTE .STK-MED ONE Ondansetron HCl 4 mg 11/15/22 19:24 11/15/22 20:00 Ondansetron Hcl 4 Mg/2 Ml Vial IV 11/15/22 19:25 4 mg STAT ONE Administration Ondansetron HCl Confirm 11/15/22 19:54 Ondansetron Hcl 4 Mg/2 Ml Vial Administered 11/15/22 19:55 Dose 4 mg .ROUTE .STK-MED ONE Lab/Rad Data: Laboratory Result Diagrams 11/15/22 19:35 11/15/22 19:35 Laboratory Results 11/15/22 11/15/22 Range/Units 19:35 19:35 WBC 7.4 (4.0-10.5) x10^3/uL RBC 3.74 L (4.1-5.4) x10^6/uL Hgb 11.4 L (12.0-16.0) g/dL Hct 35.5 (35-47) % MCV 94.9 (78-100) fL MCH 30.5 (26-32) pg MCHC 32.1 (32-36) g/dL RDW 13.0 (11.5-14.0) % Plt Count 229 (150-450) x10^3/uL MPV 10.7 (7.5-11.0) fL Gran % 60.6 (36.0-66.0) % Immature Gran % (Auto) 0.3 (0.00-0.4) % Nucleat RBC Rel Count 0.0 (0.00-0.1) % Eos # (Auto) 0.19 (0-0.5) x10^3/uL Immature Gran # (Auto) 0.02 (0.00-0.03) x10^3u/L Absolute Lymphs (auto) 2.20 (1.0-4.6) x10^3/uL Absolute Monos (auto) 0.47 (0.0-1.3) x10^3/uL Absolute Nucleated RBC 0.00 (0.00-0.01) x10^3u/L Lymphocytes % 29.7 (24.0-44.0) % Monocytes % 6.3 (0.0-12.0) % Eosinophils % 2.6 (0.00-5.0) % Basophils % 0.5 (0.0-0.4) % Absolute Granulocytes 4.49 (1.4-6.9) x10^3/uL Basophils # 0.04 (0-0.4) x10^3/uL Sodium 140 (137-145) mmol/L Potassium 4.3 (3.5-5.1) mmol/L Chloride 107 (98-107) mmol/L Carbon Dioxide 25 (22-30) mmol/L Anion Gap 12.1 (5-15) MEQ/L BUN 13 (7-17) mg/dL Creatinine 0.70 (0.52-1.04) mg/dL Estimated GFR > 60.0 ML/MIN Glucose 89 (74-106) mg/dL Calcium 8.9 (8.4-10.2) mg/dL Total Bilirubin 0.40 (0.2-1.3) mg/dL AST 29 (14-36) U/L ALT 24 (0-35) U/L Alkaline Phosphatase 63 (38-126) U/L Serum Total Protein 6.6 (6.3-8.2) g/dL Albumin 3.9 (3.5-5.0) g/dL Amylase 65 (30-110) U/L Lipase 44 (23-300) U/L - Progress Progress: improved, pain not gone completely, re-examined Progress Note: 11/15/22 20:54 Patient's medical issue is 1 of moderate complexity. The level of complexity in the work-up performed is based on review of the patient's past medical history, review of the patient's medication list, review of the patient's drug allergy list, history of present illness and physical findings on examination. The work-up in this patient includes placement of intravenous line, infusion of normal saline solution, CBC, CMP, amylase and lipase levels. In addition we ordered a CAT scan of the abdomen and pelvis without contrast. The results of the CAT scan of the abdomen pelvis was interpreted by the radiologist and I revi ewed the impression. The patient has a 2 mm left UVJ ureteral stone and mild hepatomegaly present. There is no mention of any renal or ureteral dilatation or swelling. Counseled pt/family regarding: lab results, diagnosis, need for follow-up, rad results Medical Desision Making - Independent Historian Additional History obtained from: Mother - Diagnostic Testing Diagnostic test were ordered, analyzed, and reviewed by me: Yes Radiological Interpretation: Reviewed by me, Teleradiologist Report - Risk of complications Low Risk: Low risk of morbidity from additional dx testing or treatment - Departure Departure Disposition: Home Clinical Impression: Left ureteral calculus Condition: Stable Critical Care Time: No Referrals: CHASITY MADDOX MD [Primary Care Provider] - Follow up/PCP as directed Additional Instructions: Drink plenty of fluids. Take your prescription new received from [facility] emergency department and use as prescribed. Follow-up with your primary care provider on 11/18/2022 for further evaluation management.
[2022-11-15 18:45] VITALS: BP 120/66; PULSE 71; RESP 18; TEMP 97.3; O2SAT 99
[2022-11-15] MEDS ORDERED: Sodium Chloride 0.9% 1000 ML 1,000 ML IV STA (19:24)
[2022-11-15] MEDS ORDERED: Hydromorphone 1 mg/ml Injection IV ONE (19:24)
[2022-11-15] MEDS ORDERED: Zofran 4 MG/2 ML VIAL IV ONE (19:24)
[2022-11-15] MEDS ORDERED: TORAdol 30 mg Injection IV ONE (19:24)
[2022-11-15 19:39] LABS: Absolute Neutrophil Ct (ANC) 4.49 x10^3/uL (1.4-6.9); BASOPHIL % 0.5 % (0.0-0.4); Basophil (Absolute #) 0.04 x10^3/uL (0-0.4); Eosinophil % 2.6 % (0.00-5.0); Eosinophil (Absolute #) 0.19 x10^3/uL (0-0.5); Hematocrit 35.5 % (35-47); Hemoglobin 11.4 g/dL (12.0-16.0); IMMATURE GRAN # 0.02 x10^3u/L (0.00-0.03); IMMATURE GRAN % 0.3 % (0.00-0.4); Lymphocytes % 29.7 % (24.0-44.0); Mean Cell Volume 94.9 fL (78-100); Mean Corpuscular Hemoglobin 30.5 pg (26-32); Mean Corpuscular Hgb Concent. 32.1 g/dL (32-36); Mean Platelet Volume 10.7 fL (7.5-11.0); Monocyte (Absolute #) 0.47 x10^3/uL (0.0-1.3); Monocytes % 6.3 % (0.0-12.0); Neutrophil % 60.6 % (36.0-66.0); Platelet Count 229 x10^3/uL (150-450); Red Blood Count 3.74 x10^6/uL (4.1-5.4); White Blood Count 7.4 x10^3/uL (4.0-10.5)
[2022-11-15] MEDS ORDERED: TORAdol 30 mg Injection ONE (19:54)
[2022-11-15] MEDS ORDERED: Zofran 4 MG/2 ML VIAL ONE (19:54)
[2022-11-15] MEDS ORDERED: Sodium Chloride 0.9% 1000 ML 1,000 ML ONE (19:55)
[2022-11-15] MEDS ORDERED: Hydromorphone 1 mg/ml Injection ONE (19:55)
[2022-11-15 20:01] LABS: ALBUMIN 3.9 g/dL (3.5-5.0); ALKALINE PHOSPHATASE 63 U/L (38-126); AMYLASE 65 U/L (30-110); ANION GAP 12.1 MEQ/L (5-15); BLOOD UREA NITROGEN 13 mg/dL (7-17); CHLORIDE 107 mmol/L (98-107); Calcium 8.9 mg/dL (8.4-10.2); Carbon Dioxide 25 mmol/L (22-30); EST GLOMERULAR FILTRATION RATE > 60.0 ML/MIN; Glucose 89 mg/dL (74-106); LIPASE 44 U/L (23-300); Potassium 4.3 mmol/L (3.5-5.1); SGOT/AST 29 U/L (14-36); SGPT/ALT 24 U/L (0-35); SODIUM 140 mmol/L (137-145); Total Protein 6.6 g/dL (6.3-8.2)
--- NOTE | 2022-11-15 20:50 | XRAY ---
CLINICAL HISTORY:Suprapubic/pelvic pain COMPARISON:None TECHNIQUE:CT scan of the abdomen and pelvis was performed with IV contrast administered as an intravenous contrast agent. Coronal and sagittal reconstructive images were also obtained. FINDINGS: Abdomen: The liver is increased in size and measures 16.3 cm. No focal or diffuse parenchymal abnormality. The portal vein, intrahepatic biliary radicals and the bile ducts are normal. The spleen, pancreas, adrenal glands are unremarkable. The kidneys are unremarkable. They are normal in size and shape. No right hydronephrosis detected. Left renal multiple small calyceal stones with the largest is lower calyceal stone measuring 4 mm. Left lower ureteric stone at right VUJ measuring 2mm The gallbladder is surgically excised. Multiple diverticulae of colonic segments with minimal pelvic fat stranding with segmental bowel wall thickening in distal part of descening and rectosigmoid part of large bowel. There is no evidence of significant enlargement of the mesenteric or retroperitoneal lymph nodes. Bilateral breast implants show no evidence of complications. Pelvis: The urinary bladder is unremarkable. The rectosigmoid colon is unremarkable. The uterus is unremarkable. The pelvic vasculature is unremarkable. No evidence of pelvic lymphadenopathy. The osseous structures in the pelvis, lower rib cage and lumbar spine show No lytic or sclerotic bone lesions. IMPRESSION: Mild hepatomegally likely fatty infiltration. Left renal multiple small calyceal stones with the largest is lower calyceal stone. Left lower ureteric stone at right VUJ measuring 2mm. Electronically Signed by: Natalia Jung MD. (11/15/2022 19:49:08 HVAC MANAGER)
[2022-11-15] MEDS ORDERED: NORCO 5/325 MG PO ONE (20:59)
[2022-11-15] MEDS ORDERED: NORCO 5/325 MG ONE (22:11)
== END 2022-11-15 22:23 | disposition home or self-care (01) ==
LOC: ED 17:26
DX: N20.1 Calculus of ureter (principal); R10.2 Pelvic and perineal pain
CPT/HCPCS: 36000; 36415; 74176; 80053; 82150; 83690; 85025; 96374; 96375; 99284; J1170; J1885; J2405; A9270-GY

== ENCOUNTER 2024-01-07 12:40 | Emergency (ER) | payer MEDICAID, OTHER ==
[2024-01-07 13:11] VITALS: TEMP 98.8; O2SAT 98
--- NOTE | 2024-01-07 13:33 | XRAY ---
Indication: Cough and congestion. Comparison: November 13, 2017 Portable chest better inflated and remains clear. Heart not enlarged. Bony thorax intact with minimal levoscoliosis. Impression: Continued nonacute chest.
[2024-01-07 13:44] LABS: Group A Strep NOT DETECTED (NEGATIVE)
[2024-01-07 13:57] LABS: INFLUENZA A NEGATIVE (NEGATIVE); INFLUENZA B NEGATIVE (NEGATIVE); RESPIRATORY SYNCTIAL VIRUS NEGATIVE (NEGATIVE); SARS-CoV-2 Xpert Express NEGATIVE (NEGATIVE)
--- NOTE | 2024-01-07 14:16 | ERPHSYRPT ---
- History of Present Illness Time Seen by Provider: 01/07/24 12:58 Source: patient Exam Limitations: no limitations Patient Subjective Stated Complaint: Nasal congestion Triage Nursing Assessment: Patient ambulated back to ED and transferred self to bed. Patient A+O X3. Patient's skin pink, warm and dry. Patient complains of nasal congestion, cough, sneezing, headache, nausea, and diarrhea but denies vomiting since Friday. Lungs clear a/p noemi. Patient complains of headache and back pain 08/07. Physician History: 33 years old female presented in the ER with complaints of flulike symptoms since yesterday. Sinus/nasal congestion, sore throat, minimal productive cough with aches and pains all over. Also having headaches off and on. Mildly nauseated but no vomiting. No fever or chills reported. Feeling weak fatigued and tired with no energy. No abdominal pain. No known sick contact. Allergies/Adverse Reactions: cefaclor [From [employer] Allergy (Verified 01/07/24 13:02) Home Medications: No Reportable Medications [No Reported Medications] 01/07/24 [History] Hx Tetanus, Diphtheria Vaccination/Date Given: No Hx Influenza Vaccination/Date Given: No Hx Pneumococcal Vaccination/Date Given: No Immunizations Up to Date: Yes Travel Risk - International Travel Have you traveled outside of the country in past 3 weeks: No - Emerging Infectious Disease Are you exhibiting symptoms associated with any current EIDs: No - Review of Systems Constitutional: Fatigue, Weakness Eyes: No Symptoms Ears, Nose, & Throat: Nose Congestion, Nose Discharge, Sinus Drainage, Throat Pain Respiratory: Cough Cardiac: No Symptoms Abdominal/Gastrointestinal: Nausea Genitourinary Symptoms: No Symptoms Musculoskeletal: Myalgias Skin: No Symptoms Neurological: Headache Psychological: No Symptoms Endocrine: No Symptoms - Past Medical History Pertinent Past Medical History: Yes Neurological History: No Pertinent History ENT History: No Pertinent History Cardiac History: No Pertinent History Respiratory History: No Pertinent History Endocrine Medical History: No Pertinent History Musculoskeletal History: No Pertinent History GI Medical History: No Pertinent History History: No Pertinent History Psycho-Social History: No Pertinent History Female Reproductive Disorders: Menstrual Problems Other Medical History: multiple UTI's,heavy bleeding menstrual and painful sex - Past Surgical History Past Surgical History: Yes Neuro Surgical History: No Pertinent History Cardiac: No Pertinent History Respiratory: No Pertinent History Gastrointestinal: Cholecystectomy Genitourinary: No Pertinent History, Other Musculoskeletal: No Pertinent History Female Surgical History: Tubal Ligation Other Surgical History: kidney stone removed - Female History Hx Last Menstrual Period: partial hysterctomy Hx Now: No - Social History Smoking Status: Former smoker How long have you smoked: 2 years Exposure to second hand smoke: No Drug Use: none Patient Lives Alone: No - Social Determinants of Health Will the patient participate in the screening: Yes Do you worry about a steady place to live?: No Do you have any problems with any of the following?: No known problems In the past 12 months,have you had to go without utilities?: No Transportation Issues: No Has anyone in your support network made you feel unsafe?: No Have you or anyone in your house had to go without enough: No - Nursing Vital Signs Nursing Vital Signs: Initial Vital Signs Temperature 98.8 F 01/07/24 13:04 Pulse Rate 68 01/07/24 13:04 Respiratory Rate 19 01/07/24 13:04 Blood Pressure 118/74 01/07/24 13:04 O2 Sat by Pulse Oximetry 98 01/07/24 13:04 Pain Scale Pain Intensity 5 - Physical Exam General Appearance: no apparent distress, alert Eye Exam: PERRL/EOMI Ears, Nose, Throat Exam: moist mucous membranes, pharyngeal erythema Neck Exam: normal inspection, non-tender, supple, full range of motion Respiratory Exam: normal breath sounds, lungs clear Cardiovascular Exam: regular rate/rhythm, normal heart sounds Gastrointestinal/Abdomen Exam: soft, normal bowel sounds, No tenderness Back Exam: normal inspection Extremity Exam: normal inspection, normal range of motion Neurologic Exam: alert, oriented x 3, cooperative Skin Exam: normal color SpO2 Interpretation: normal SpO2: 98 O2 Delivery: Room Air Ordered Tests: Active Orders 24 hr Category Date Time Status CHEST 1 VIEW (PORTABLE) Stat Exams 01/07/24 13:04 Completed Medication Summary Discontinued Medications Generic Name Dose Route Start Last Admin Trade Name Thompsonq PRN Reason Stop Dose Admin Prednisone 60 mg 01/07/24 14:14 Prednisone 20 Mg Tablet PO 01/07/24 14:15 STAT ONE Lab/Rad Data: Laboratory Results 01/07/24 Range/Units 13:05 Influenza Type A Ag NEGATIVE (NEGATIVE) Influenza Type B Ag NEGATIVE (NEGATIVE) RSV (PCR) NEGATIVE (NEGATIVE) SARS-CoV-2 (PCR) NEGATIVE (NEGATIVE) Group A Strep Antibody NOT DETECTED (NEGATIVE) - Progress Progress: unchanged Air Movement: good Progress Note: 01/07/24 14:17 33 years old is evaluated in ER for flulike symptoms since yesterday. Patient is not in any distress. Lungs clear to auscultation. Abdominal exam soft nontender with normoactive bowel sounds. Negative COVID flu RSV and strep. Patient chest x-ray is negative for any acute cardiopulmonary findings. I believe patient has viral etiology symptoms, given a shot of Kenalog, recommended supportive care and outpatient follow-up. Discussed signs symptoms of worsening needing return to ER which he seems understanding. Blood Culture(s) Obtained: No Antibiotics given: No Counseled pt/family regarding: lab results, diagnosis, need for follow-up, rad results Medical Desision Making - Diagnostic Testing Diagnostic test were ordered, analyzed, and reviewed by me: Yes Radiological Interpretation: Reviewed by me - Risk of complications The pt has a mod risk of morbidity or mortality based on: Need for prescription drug management - Departure Departure Disposition: Home Clinical Impression: Viral syndrome, Viral URI with cough Condition: Stable Critical Care Time: No Referrals: CHASITY MADDOX MD [Primary Care Provider] - Follow up with PCP 1 day Instructions: Upper respiratory infection in adults - Discharge instructions Additional Instructions: Take Tylenol/ibuprofen as needed. Drink plenty of fluids to keep yourself well- hydrated. Follow-up with primary care for reevaluation. Return to ER for any worsening.
[2024-01-07] MEDS: DELTASONE 20 MG PO ONE (14:18)
[2024-01-07] MEDS ORDERED: DELTASONE 20 MG ONE (14:18)
[2024-01-07] MEDS: Kenalog-40 IM ONE (14:25)
[2024-01-07] MEDS ORDERED: Kenalog-40 ONE (14:25)
[2024-01-07 14:39] VITALS: BP 116/70; PULSE 64; RESP 18
== END 2024-01-07 14:40 | disposition home or self-care (01) ==
LOC: ED 12:40
DX: B34.9 Viral infection, unspecified (principal); J06.9 Acute upper respiratory infection, unspecified; R05.1 Acute cough; R09.81 Nasal congestion; J02.9 Acute pharyngitis, unspecified; M79.10 Myalgia, unspecified site; R51.9 Headache, unspecified
CPT/HCPCS: 0241U; 71045; 87651; 96372; 99283; J3301; A9270-GY

== ENCOUNTER 2024-05-11 16:58 | Emergency (ER) | payer SELFPAY ==
[2024-05-11 17:08] VITALS: TEMP 96.3
[2024-05-11 17:23] LABS: Absolute Neutrophil Ct (ANC) 5.45 x10^3/uL (1.56-6.13); BASOPHIL % 0.4 % (0.1-1.2); Basophil (Absolute #) 0.03 x10^3/uL (0.01-0.08); Eosinophil % 2.6 % (0.7-5.8); Eosinophil (Absolute #) 0.21 x10^3/uL (0.04-0.36); Hematocrit 35.6 % (34.1-44.9); Hemoglobin 11.5 g/dL (11.2-15.7); IMMATURE GRAN # 0.02 x10^3u/L (0.001-0.031); IMMATURE GRAN % 0.2 % (0.001-0.429); Lymphocyte (Absolute #) 2.05 x10^3/uL (1.18-3.74); Lymphocytes % 25.2 % (19.3-51.7); Mean Corpuscular Hgb Concent. 32.3 g/dL (32.2-35.5); Mean Platelet Volume 11.2 fL (9.4-12.3); Monocyte (Absolute #) 0.38 x10^3/uL (0.24-0.86); Monocytes % 4.7 % (4.7-12.5); Neutrophil % 66.9 % (34.0-71.1); Platelet Count 253 x10^3/uL (182-369); Red Blood Count 3.83 x10^6/uL (3.93-5.22); Red Cell Distribution Width 13.1 % (11.7-14.4); White Blood Count 8.1 x10^3/uL (3.98-10.04)
[2024-05-11] MEDS: BABY ASPIRIN 81 MG CHEW PO ONE (17:32)
[2024-05-11] MEDS ORDERED: BABY ASPIRIN 81 MG CHEW ONE (17:32)
--- NOTE | 2024-05-11 17:33 | ERPHSYRPT ---
- History of Present Illness Time Seen by Provider: 05/11/24 17:22 Historian: patient Exam Limitations: no limitations Patient Subjective Stated Complaint: Chest pain Triage Nursing Assessment: Patient ambulated back to ED and transferred self to bed. Patient A+O X3. Patient's skin pink, warm and dry. Patient complains of left sided chest pain/breast pain 6/10 intermittent sharp pain. Patient states the pain started yesterday at 0900 and was seen at [facility] ER last night and was dx with pleurisy. Lungs clear a/p noemi. Patient denies cough, N/V or diarrhea. Physician History: 34-year-old female presents to our ED for evaluation of left-sided chest/breast pain. Symptoms started yesterday. Patient was fully evaluated at [facility] including labs chest x-ray D-dimer. We requested the paperwork from [facility]. I reviewed the documentation. Patient had a complete workup and all was essentially nonremarkable. Patient was diagnosed with pleurisy and discharged home. Patient is here as the pain has not resolved. Pain described as an ache. Pain reproduced with palpation to her left chest. Patient works as a [employer]. Patient performs repetitive motion and lifts her arm for prolon ged periods of time. No blunt trauma. No associated nausea vomiting or diaphoresis. Patient has no significant cardiovascular history to speak of. Mother at bedside. They voiced no other complaints or concerns at this time. Portions of this note were created with voice recognition technology. There may be grammatical, spelling, punctuation or sound alike errors Timing/Duration: yesterday Activities at Onset: none Quality: aching Location: other (Left chest no radiation) Chest Pain Radiation: no radiation Severity of Pain-Max: moderate Severity of Pain-Current: mild Modifying Factors: Improves With: other (Movement and palpation to left chest wall reproduces pain) Associated Symptoms: denies symptoms Prior Chest Pain/Cardiac Workup: no prior chest pain Nitro Today/Relief: no nitro taken today Aspirin Treatment Today: no aspirin today Allergies/Adverse Reactions: cefaclor [From Ceclor] Allergy (Verified 05/11/24 17:02) Home Medications: No Reportable Medications [No Reported Medications] 01/07/24 [History] Hx Tetanus, Diphtheria Vaccination/Date Given: No Hx Influenza Vaccination/Date Given: No Hx Pneumococcal Vaccination/Date Given: No Immunizations Up to Date: Yes Travel Risk - International Travel Have you traveled outside of the country in past 3 weeks: No - Emerging Infectious Disease Are you exhibiting symptoms associated with any current EIDs: No - Review of Systems Constitutional: No Symptoms, No Fever, No Chills Eyes: No Symptoms Ears, Nose, & Throat: No Symptoms Respiratory: No Symptoms, No Cough, No Dyspnea Cardiac: No Symptoms, No Chest Pain, No Edema, No Syncope Abdominal/Gastrointestinal: No Symptoms, No Abdominal Pain, No Nausea, No Vomiting, No Diarrhea Genitourinary Symptoms: No Symptoms, No Dysuria Musculoskeletal: No Symptoms, No Back Pain, No Neck Pain Skin: No Symptoms, No Rash Neurological: No Symptoms, No Dizziness, No Focal Weakness, No Sensory Changes Psychological: No Symptoms Endocrine: No Symptoms Hematologic/Lymphatic: No Symptoms Immunological/Allergic: No Symptoms All Other Systems: Reviewed and Negative - Past Medical History Pertinent Past Medical History: Yes Neurological History: No Pertinent History ENT History: No Pertinent History Cardiac History: No Pertinent History Respiratory History: No Pertinent History Endocrine Medical History: No Pertinent History Musculoskeletal History: No Pertinent History GI Medical History: No Pertinent History History: No Pertinent History Psycho-Social History: No Pertinent History Female Reproductive Disorders: Menstrual Problems Other Medical History: multiple UTI's,heavy bleeding menstrual and painful sex - Past Surgical History Past Surgical History: Yes Neuro Surgical History: No Pertinent History Cardiac: No Pertinent History Respiratory: No Pertinent History Gastrointestinal: Cholecystectomy Genitourinary: No Pertinent History, Other Musculoskeletal: No Pertinent History Female Surgical History: Tubal Ligation Other Surgical History: kidney stone removed - Female History Hx Last Menstrual Period: hysterectomy Hx Now: No - Social History Smoking Status: Never smoker Exposure to second hand smoke: No Drug Use: none - Social Determinants of Health Will the patient participate in the screening: Yes Do you worry about a steady place to live?: No Do you have any problems with any of the following?: No known problems In the past 12 months,have you had to go without utilities?: No Transportation Issues: No Has anyone in your support network made you feel unsafe?: No Have you or anyone in your house had to go without enough: No - Nursing Vital Signs Nursing Vital Signs: Initial Vital Signs Temperature 96.3 F 05/11/24 17:02 Pulse Rate 74 05/11/24 17:02 Respiratory Rate 20 05/11/24 17:02 Blood Pressure 145/85 05/11/24 17:02 O2 Sat by Pulse Oximetry 100 05/11/24 17:02 Pain Scale Pain Intensity 0 - Physical Exam General Appearance: no apparent distress, alert Eye Exam: PERRL/EOMI, eyes nml inspection Ears, Nose, Throat Exam: normal ENT inspection, moist mucous membranes Neck Exam: normal inspection, full range of motion Respiratory Exam: normal breath sounds, lungs clear, airway intact, No respiratory distress Cardiovascular Exam: regular rate/rhythm, normal heart sounds Gastrointestinal/Abdomen Exam: soft, No tenderness, No mass Back Exam: normal inspection, No CVA tenderness, No vertebral tenderness Extremity Exam: normal inspection, normal range of motion Neurologic Exam: alert, oriented x 3, cooperative, normal mood/affect, sensation nml, No motor deficits Skin Exam: normal color, warm, dry Lymphatic Exam: No adenopathy SpO2 Interpretation: normal SpO2: 100 O2 Delivery: Room Air - Course Nursing assessment & vital signs reviewed: Yes EKG Interpreted by Me: RATE ([id number]), Sinus Rhythm, NORMAL AXIS, NORMAL INTERVALS, NORMAL QRS Ordered Tests: Active Orders 24 hr Category Date Time Status Pail Bailer STAT Care 05/11/24 17:19 Active EKG-ER Only STAT Care 05/11/24 17:18 Active IV Insertion STAT Care 05/11/24 17:18 Active Pulse Oximetry (ED) STAT Care 05/11/24 17:18 Active CBC W DIFF Stat Lab 05/11/24 17:10 Completed CMP Stat Lab 05/11/24 17:10 Completed D-DIMER QUANTITATIVE Stat Lab 05/11/24 17:10 Completed HCG QUALITATIVE, URINE Stat Lab 05/11/24 Ordered NT PRO BNPII Stat Lab 05/11/24 17:10 Completed TROPONIN Q4H Lab 05/11/24 17:10 Completed TROPONIN Q4H Lab 05/11/24 21:30 Ordered TROPONIN Q4H Lab 05/12/24 01:30 Ordered Medication Summary Discontinued Medications Generic Name Dose Route Start Last Admin Trade Name Freq PRN Reason Stop Dose Admin Aspirin 324 mg 05/11/24 17:18 05/11/24 17:32 Aspirin 81 Mg Tab.Chew PO 05/11/24 17:19 324 mg STAT ONE Administration Aspirin Confirm 05/11/24 17:32 Aspirin 81 Mg Tab.Chew Administered 05/11/24 17:33 Dose 324 mg .ROUTE .STK-MED ONE Dexamethasone Sodium Phosphate 6 mg 05/11/24 17:44 05/11/24 17:46 Dexamethasone Sod Phosphate 10 Mg/Ml IV 05/11/24 17:45 6 mg STAT ONE Administration Dexamethasone Sodium Phosphate Confirm 05/11/24 17:45 Dexamethasone Sod Phosphate 10 Mg/Ml Administered 05/11/24 17:46 Dose 10 mg .ROUTE .STK-MED ONE Lab/Rad Data: Laboratory Result Diagrams 05/11/24 17:10 05/11/24 17:10 Laboratory Results 05/11/24 05/11/24 05/11/24 Range/Units 17:10 17:10 17:10 WBC (3.98-10.04) x10^3/uL RBC (3.93-5.22) x10^6/uL Hgb (11.2-15.7) g/dL Hct (34.1-44.9) % MCV (79.4-94.8) fL MCH (25.6-32.2) pg MCHC (32.2-35.5) g/dL RDW (11.7-14.4) % Plt Count (182-369) x10^3/uL MPV (9.4-12.3) fL Gran % (34.0-71.1) % Immature Gran % (Auto) (0.001-0.429) % Nucleat RBC Rel Count (0.00-0.2) % Eos # (Auto) (0.04-0.36) x10^3/uL Immature Gran # (Auto) (0.001-0.031) x10^3u/L Absolute Lymphs (auto) (1.18-3.74) x10^3/uL Absolute Monos (auto) (0.24-0.86) x10^3/uL Absolute Nucleated RBC (0.00-0.012) x10^3u/L Lymphocytes % (19.3-51.7) % Monocytes % (4.7-12.5) % Eosinophils % (0.7-5.8) % Basophils % (0.1-1.2) % Absolute Granulocytes (1.56-6.13) x10^3/uL Basophils # (0.01-0.08) x10^3/uL D-Dimer 0.35 (0.0-0.50) mg/L Sodium 140 (135-145) mmol/L Potassium 4.0 (3.5-5.1) mmol/L Chloride 108 H (98-107) mmol/L Carbon Dioxide 28 (22-30) mmol/L Anion Gap 8.2 (5-15) MEQ/L BUN 10 (7-17) mg/dL Creatinine 0.75 (0.52-1.04) mg/dL Estimated GFR 107.7 ML/MIN Glucose 96 (74-106) mg/dL Calcium 8.5 (8.4-10.2) mg/dL Total Bilirubin 0.40 (0.2-1.3) mg/dL AST 31 (14-36) U/L ALT 23 (0-35) U/L Alkaline Phosphatase 80 (38-126) U/L Troponin I < 0.012 (0.000-0.033) ng/mL NT-Pro-B Natriuret Pep 146 (<300) pg/mL Serum Total Protein 6.7 (6.3-8.2) g/dL Albumin 4.0 (3.5-5.0) g/dL 05/11/24 Range/Units 17:10 WBC 8.1 (3.98-10.04) x10^3/uL RBC 3.83 L (3.93-5.22) x10^6/uL Hgb 11.5 (11.2-15.7) g/dL Hct 35.6 (34.1-44.9) % MCV 93.0 (79.4-94.8) fL MCH 30.0 (25.6-32.2) pg MCHC 32.3 (32.2-35.5) g/dL RDW 13.1 (11.7-14.4) % Plt Count 253 (182-369) x10^3/uL MPV 11.2 (9.4-12.3) fL Gran % 66.9 (34.0-71.1) % Immature Gran % (Auto) 0.2 (0.001-0.429) % Nucleat RBC Rel Count 0.0 (0.00-0.2) % Eos # (Auto) 0.21 (0.04-0.36) x10^3/uL Immature Gran # (Auto) 0.02 (0.001-0.031) x10^3u/L Absolute Lymphs (auto) 2.05 (1.18-3.74) x10^3/uL Absolute Monos (auto) 0.38 (0.24-0.86) x10^3/uL Absolute Nucleated RBC 0.00 (0.00-0.012) x10^3u/L Lymphocytes % 25.2 (19.3-51.7) % Monocytes % 4.7 (4.7-12.5) % Eosinophils % 2.6 (0.7-5.8) % Basophils % 0.4 (0.1-1.2) % Absolute Granulocytes 5.45 (1.56-6.13) x10^3/uL Basophils # 0.03 (0.01-0.08) x10^3/uL D-Dimer (0.0-0.50) mg/L Sodium (135-145) mmol/L Potassium (3.5-5.1) mmol/L Chloride (98-107) mmol/L Carbon Dioxide (22-30) mmol/L Anion Gap (5-15) MEQ/L BUN (7-17) mg/dL Creatinine (0.52-1.04) mg/dL Estimated GFR ML/MIN Glucose (74-106) mg/dL Calcium (8.4-10.2) mg/dL Total Bilirubin (0.2-1.3) mg/dL AST (14-36) U/L ALT (0-35) U/L Alkaline Phosphatase (38-126) U/L Troponin I (0.000-0.033) ng/mL NT-Pro-B Natriuret Pep (<300) pg/mL Serum Total Protein (6.3-8.2) g/dL Albumin (3.5-5.0) g/dL - Progress Progress: improved Air Movement: good Progress Note: 34-year-old female presents to our ED for evaluation of left-sided chest pain. Pain worse with deep inspiration and with palpation to left chest wall. Patient had a complete workup performed yesterday at [facility]. Workup was essentially nonremarkable. Chest x-ray at [facility] showed no acute findings. D-dimer negative. Laboratory workup negative. Today's workup is nonremarkable as well. No indication for further workup at this time will discharge home. Patient reassessed. Patient asymptomatic and is now requesting discharge. Portions of this note were created with voice recognition technology. There may be grammatical, spelling, punctuation or sound alike errors Complexity of problem addressed is moderate acute complicated no critical care time. Complexity of data reviewed and analyzed is extensive. Dr. Walh reviewed the documentation from [facility]. This information help guide today's management. Risk of complication and or risk of morbidity/mortality of patient management is low. Vital stable. Time spent to discharge patient is approximately 15 to 20 minutes. Plan of care established for shared decision making. No social determinants of health present to impede follow-up. Portions of this note were created with voice recognition technology. There may be grammatical, spelling, punctuation or sound alike errors 05/11/24 19:24 Blood Culture(s) Obtained: No Antibiotics given: No Counseled pt/family regarding: diagnosis, need for follow-up - Departure Departure Disposition: Home Clinical Impression: Pleurisy, Chest wall tenderness Condition: Stable Critical Care Time: No Referrals: CHASITY MADDOX MD [Primary Care Provider] - Follow up/PCP as directed Additional Instructions: Discharge/Care Plan ELISE ACOSTA was seen on 05/11/24 in the Emergency Room. The patient was counseled regarding Diagnosis,Lab results, Imaging studies, need for follow up and when to return to the Emergency Room. Prescriptions given: Discharge Note I have spoken with the patient and/or caregivers. I have explained the patient's condition, diagnosis and treatment plan based on the information available to me at this time. I have answered the patient's and/or caregiver's questions and addressed any concerns. The patient and/or caregivers have as good understanding of the patient's diagnosis, condition and treatment plan as can be expected at this point. The vital signs have been stable. The patient's condition is stable and appropriate for discharge from the emergency department. The patient will pursue further outpatient evaluation with the primary care physician or other designated or consulting physician as outlined in the discharge instructions. The patient and/or caregivers are agreeable to this plan of care and follow-up instructions have been explained in detail. The patient and/or caregivers have received these instruction. The patient/and or caregivers are aware that any significant change in condition or worsening of symptoms should prompt an immediate return to this or the closest emergency department or call 911.
[2024-05-11] MEDS ORDERED: DECADRON 10MG INJ. ONE (17:45)
[2024-05-11] MEDS: DECADRON 10MG INJ. IV ONE (17:46)
[2024-05-11 17:49] LABS: ANION GAP 8.2 MEQ/L (5-15); BILIRUBIN,TOTAL 0.4 mg/dL (0.2-1.3); Calcium 8.5 mg/dL (8.4-10.2); Creatinine 1 0.75 mg/dL (0.52-1.04); EST GLOMERULAR FILTRATION RATE 107.7 ML/MIN; Total Protein 6.7 g/dL (6.3-8.2)
[2024-05-11 19:18] VITALS: O2SAT 100
[2024-05-11 19:20] VITALS: BP 129/72; PULSE 54; RESP 16
== END 2024-05-11 19:30 | disposition home or self-care (01) ==
LOC: ED 16:58
DX: R09.1 Pleurisy (principal); R07.89 Other chest pain
CPT/HCPCS: 36415; 80053; 83880; 84484; 85025; 85379; 93005; 93041; 94760; 96374; 99284; J1100; A9270-GY